=== PATIENT | male | born 1955 | race Caucasian/White ===

== ENCOUNTER 2017-07-14 05:55 | Day surgery (SDC) | payer OTHER ==
[2017-07-12 17:40] VITALS: BMI 27.9
[2017-07-14] MEDS ORDERED: SUCCINYLCHOLINE CHLORIDE 200 MG/10 ML VIAL ONE (06:57)
[2017-07-14] MEDS ORDERED: PROPOFOL 20 ML ONE ×4 (06:57→08:26)
[2017-07-14] MEDS ORDERED: MIDAZOLAM HCL 2 MG/2 ML SINGLE DOSE VIAL ONE (07:02)
[2017-07-14] MEDS ORDERED: DEXAMETHASONE SOD PHOSPHATE/PF 10 MG/ML SDV ONE (07:02)
[2017-07-14] MEDS ORDERED: ROPIVACAINE HCL 0.5% 30ML VIAL ONE (07:03)
[2017-07-14] MEDS ORDERED: PROMETHAZINE HCL 25 MG/1 ML VIAL IVPUSH PRN (09:13)
[2017-07-14] MEDS ORDERED: oxyCODONE HCL 5 MG TABLET PO PRN ×2 (09:13)
[2017-07-14] MEDS ORDERED: ONDANSETRON 4 MG/2 ML VIAL IVPUSH PRN (09:13)
[2017-07-14] MEDS ORDERED: LACTATED RINGERS SOLUTION 1,000 ML IV SCH (09:15)
[2017-07-14 11:00] VITALS: BP 121/65; PULSE 85; TEMP 98.2
--- NOTE | 2017-07-18 13:31 | PATH ---
Surgical Pathology Report Patient Name: [facility]. Rec. #: [id number] /Age/Gender: 1955 (Age: 61) / M Account: [id number] Location: [facility] AMBUL[facility]ORY Taken: 07/14/2017 Received: 07/14/2017 Reported: 07/18/2017 Physicians: Agustin Vásquez M.D. Specimen(s) Received LEFT SHOULDER SHAVINGS Clinical History Left shoulder rotator cuff tear Final Diagnosis LEFT SHOULDER, ARTHROSCOPIC SHAVING: PORTIONS OF SYNOVIUM, CARTILAGE, SKELETAL MUSCLE AND BONE CONSISTENT WITH ARTHROSCOPIC SHAVINGS. Electronically Signed Caden Kelly M.D. Gross Description Received in formalin, labeled "left shoulder shavings," is a 3 x 3 x 0.5 cm. aggregate of moise-yellow soft tissue fragments. A provider relations representative portion is submitted in one cassette. [facility]/07/17/2017 [facility]/07/17/2017
--- NOTE | 2017-07-19 09:32 | OP ---
DATE OF OPERATION: 07/14/2017 SURGEON: Agustin Colón MD TRADE MANAGER: ETREZA Serrano PREOPERATIVE DIAGNOSIS: 1. Left shoulder rotator cuff tear. 2. Left shoulder impingement syndrome. 3. Left shoulder acromioclavicular degenerative joint disease. 4. Left shoulder superior labral [id number] synovitis. POSTOPERATIVE DIAGNOSIS: 1. Left shoulder rotator cuff tear. 2. Left shoulder impingement syndrome. 3. Left shoulder acromioclavicular degenerative joint disease. 4. Left shoulder superior labral [id number] synovitis. PROCEDURE: 1. Left shoulder arthroscopy with arthroscopic rotator cuff repair. 2. Left shoulder arthroscopy with subacromial decompression. 3. Left shoulder arthroscopy with resection of distal clavicle acromioclavicular joint. 4. Left shoulder arthroscopy with debridement. CPT code 45824, 49160, 80700, 47228. FINDINGS: 1. Antegrade 2 cartilage injury of glenoid. 2. Glenohumeral synovitis. 3. Diffuse tearing of anterior labrum from the 1 o'clock to 3 o'clock position anteriorly. 4. Full-thickness rotator cuff tear of entire supraspinatus. 5. Type 2 acromion with anterior and lateral spurring. 6. Inferior spurs of the clavicle with degenerative joint disease. 7. Partial biceps tear, 10%. 8. Posterior labral fraying. REPAIR TYPE: Double rows were placed into the supraspinatus, connecting both the undersurface portion of the tear as well as the superior portion of the tear, which was split in a fish-mouth pattern. This was secured to a bleeding bone bed with 4 anchors placed into the 2 portions of the supraspinatus and 4 mattress sutures were placed into the rotator cuff and 4 anchors were placed into the bleeding bone bed, securing the tendon to the bleeding bone bed. PROCEDURE: Informed consent was obtained. The patient was taken to the operating room where the upper extremity was prepped and draped in a sterile fashion. The shoulder was manipulated for a full range of motion. Posterior incision portal was made and directed to glenohumeral joint. Under direct visualization, an anterior incision and portal was made. Extensive synovitis, as well as chondral injuries throughout the glenohumeral joint were dbrided and removed. Any identified labral injuries, including superior labral tear, anterior and posterior, and anterior labrum torn portions were removed as well. Rotator cuff was visualized and noted to have full-thickness tear. The edges were debrided. Posterior incision portal was redirected to subacromial space where a lateral incision portal was made. Excessive and thickened scar tissue noted throughout the subacromial space, including bursal and scar tissue, were removed. The type 2 acromion was converted into a flattened type 1 using a lashay for subacromial decompression. Distal inferior spur at the distal clavicle was also dbrided with the use of accessory portal in the AC joint. The edges of the rotator cuff were identified. Sutures were placed into the rotator cuff and secured using anchors throughout the greater tuberosity. Prior to securing, a bleeding bed was made using a small lashay, creating a bleeding surface of the rotator cuff insertion. The shoulder was then drained. A single suture as placed on all portals and a sterile dressing was placed. The patient was transferred to the recovery room without complication. Please note that the distal clavicle resection included 1 cm of undersurface of the clavicle extended to the portion and done through an accessory portal. AGUSTIN COLÓN M.D. [id number]
== END 2017-07-14 11:01 | disposition home or self-care (01) ==
LOC: FASU 05:55
PROVIDERS: ATTEND Orthopaedic Surgery
PROC: 0RNK4ZZ Release Left Shoulder Joint, Percutaneous Endoscopic Approach (ICD-10-PCS; 2017-07-14)
PROC: 0PBB4ZZ Excision of Left Clavicle, Percutaneous Endoscopic Approach (ICD-10-PCS; 2017-07-14)
PROC: 0RBK4ZZ Excision of Left Shoulder Joint, Percutaneous Endoscopic Approach (ICD-10-PCS; 2017-07-14)
PROC: 0LB24ZZ Excision of Left Shoulder Tendon, Percutaneous Endoscopic Approach (ICD-10-PCS; principal; 2017-07-14 08:13)
DX: M75.122 Complete rotator cuff tear or rupture of left shoulder, not specified as traumatic (principal); M75.42 Impingement syndrome of left shoulder; M19.012 Primary osteoarthritis, left shoulder; S43.432A Superior glenoid labrum lesion of left shoulder, initial encounter; X58.XXXA Exposure to other specified factors, initial encounter; Y93.9 Activity, unspecified; Y92.9 Unspecified place or not applicable
CPT/HCPCS: 88304-TC; 94760